=== PATIENT | female | born 1975 | race Caucasian/White ===

== ENCOUNTER 2017-12-16 21:23 | Emergency (ER) | payer MEDICAID ==
[~2017-12-16] VITALS: Ht 165.1 cm; Wt 79.4 kg
[2017-12-16] MEDS ORDERED: Amoxicillin875 MG PO (22:43)
== END 2017-12-16 22:57 | disposition home or self-care (01) ==
LOC: ER 21:23
DX: H66.93 Otitis media, unspecified, bilateral (principal); F17.200 Nicotine dependence, unspecified, uncomplicated
CPT/HCPCS: 99283

== ENCOUNTER 2018-01-17 13:27 | Emergency (ER) | payer MEDICAID ==
[~2018-01-17] VITALS: Ht 160 cm; Wt 83.9 kg
[~2018-01-17 13:27] MED LIST: Amoxicillin875 MG PO
== END 2018-01-17 14:48 | disposition short-term general hospital (02) ==
LOC: ER 13:27
DX: S01.25XA Open bite of nose, initial encounter (principal); F17.210 Nicotine dependence, cigarettes, uncomplicated; Z23 Encounter for immunization; W54.0XXA Bitten by dog, initial encounter
CPT/HCPCS: 36415; 90714; 96365; 96375; 99285; J0295; J2405; J3010; J7030